=== PATIENT | male | born 1960 | race Caucasian/White ===

== ENCOUNTER 2018-01-09 09:51 | Inpatient (IN) ==
--- NOTE | 2018-01-08 21:45 | Discharge Summary ---
<[place] E - Last Filed: 01/08/18 21:42> Date of Encounter: 01/08/18 - Discharge Diagnosis (1) Status post right knee replacement Priority: Primary Status: Acute (2) Arthritis of right knee Priority: Primary Status: Chronic (3) Diabetes mellitus Priority: Secondary Status: Chronic Qualifiers: Diabetes mellitus type: other specified (including BHARATH) Diabetes mellitus detention insulin use: with detention use Diabetes mellitus complication status: with unspecified complications Qualified Code(s): E13.8 - Other specified diabetes mellitus with unspecified complications; Z79.4 - halfway ( current) use of insulin; Z79.4 - halfway (current) use of insulin; Z79.4 - halfway (current) use of insulin; Z79.4 - halfway (current) use of insulin (4) Obesity Priority: Secondary Status: Chronic Qualifiers: Obesity type: unspecified obesity type Obesity classification: unspecified obesity classification Serious obesity comorbidity presence: unspecified whether serious comorbidity present Qualified Code(s): E66.9 - Obesity, unspecified (5) HTN (hypertension) Priority: Secondary Status: Chronic Qualifiers: Hypertension type: unspecified Qualified Code(s): I10 - Essential (primary ) hypertension - Hospital Course Hospital course: Mr. Sawyer is a 57 year old male - Time Spent with Patient Total time spent providing and/or coordinating discharge services: - Discharge Medications Home Medications: Aspirin Enteric Coated [Aspirin EC] 325 mg PO BID 10 Days #20 tablet [Rx] OxyCODONE Immed Rel [Roxicodone 5 MG] 5 mg PO Q6HR PRN 7 Days #28 tablet [Rx] Atorvastatin Calcium [Lipitor] 20 mg PO HS 01/09/18 [History] Insulin Glargine,Hum.rec.anlog [Lantus Solostar] 30 unit SQ HS 01/09/18 [History ] Lisinopril-HCTZ 20-12.5 [Prinzide 20-12.5] 1 tab PO HS 01/09/18 [History] Allergies/Adverse Reactions: 3 Allergy/AdvReac Type Severity Reaction Status Date / Time Sulfa (Sulfonamide Allergy See Verified 01/09/18 10:17 Antibiotics) Comments Primary care physician: PCP NONE - Patient Status Disposition: Home, Self-Care Condition: Good - Discharge Instructions Follow Up With: NONE,PCP [Primary Care Provider] - <Harley Yu - Last Filed: 01/10/18 06:44> Orders not resulted at time of discharge: Pending orders 01/09/18 01:00 XR knee RT limited 1-2V [XR] Routine Hemoglobin and Hematocrit [HEME] Routine Date of Encounter: 01/10/18 Time of Encounter: 06:44 - Discharge Diagnosis (1) Obesity (BMI 35.0-39.9 without comorbidity) Priority: Secondary Status: Chronic (2) Status post right knee replacement Priority: Primary Status: Acute (3) Arthritis of right knee Priority: Primary Status: Chronic (4) Diabetes mellitus Priority: Secondary Status: Chronic Qualifiers: Diabetes mellitus type: other specified (including BHARATH) Diabetes mellitus detention insulin use: with detention use Diabetes mellitus complication status: with unspecified complications Qualified Code(s): E13.8 - Other specified diabetes mellitus with unspecified complications; Z79.4 - halfway ( current) use of insulin; Z79.4 - halfway (current) use of insulin; Z79.4 - halfway (current) use of insulin; Z79.4 - terminal operations manager (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 Sawyer is a 57 year old male Status post total knee replacementThe patient had an uneventful postoperative course. They received antibiotics and physical therapy and were discharged in stable condition. There will follow-up in the office in 2 weeks. - Time Spent with Patient Total time spent providing and/or coordinating discharge services: Primary care physician: PCP NONE - Patient Status Overall status at discharge: patient is progressing back to baseline
[2018-01-09] MEDS ORDERED: Albuterol 2.5 MG/3 ML NEBULIZER IH ONE (10:02)
[2018-01-09] MEDS ORDERED: CeFAZolin Syr 3,000MG/30 ML 3,000 MG/30 ML SYRINGE IVPB ONE (10:02)
--- NOTE | 2018-01-09 10:13 | Anesthesia Evaluation PreOp ---
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 [Rx] OxyCODONE Immed Rel [Roxicodone 5 MG] 5 mg PO Q6HR PRN 7 Days #28 tablet [Rx] Atorvastatin Calcium [Lipitor] 20 mg PO HS 01/09/18 [History] Insulin Glargine,Hum.rec.anlog [Lantus Solostar] 30 unit SQ HS 01/09/18 [History ] Lisinopril-HCTZ 20-12.5 [Prinzide 20-12.5] 1 tab PO HS 01/09/18 [History] 3 Allergy/AdvReac Type Severity Reaction Status Date / Time Sulfa (Sulfonamide Allergy See Verified 01/09/18 10:17 Antibiotics) Comments - Meds/Allergy Pre-op Review Medications Reviewed: Yes Allergies Reviewed: Yes Beta Blockers on Current Med List: No Anesthesia Results - Labs 12/09/2017 3 WBC 9 HGB 14.9 HCT 44 PLT 237 Na 142 K 4.9 BUN 18 Cr 0.8 - Imaging EKG: report reviewed (09/22/2015 SINUS TACHYCARDIA NONSPECIFIC T-WAVE ABNORMALITY ABNORMAL RHYTHM ECG) Anesthesia Exam O2 Sat Height 1.88 m Height 1.88 m Height 1.88 m Weight 129.727 kg Weight 129.727 kg Weight 129.727 kg O2 Sat by Pulse Oximetry 95 Vital Signs Temp Pulse Resp BP Pulse Ox 98.2 F 90 18 143/82 95 01/09/18 10:14 01/09/18 10:14 01/09/18 10:14 01/09/18 10:14 01/09/18 10:14 Blood glucose: 331 Height: 6'2''/1.88 m Weight: 286 lbs/129.7 kg NPO (# of Hours): 8 Pain Scale: 0 Pain Scale Used: Numeric (1 - 10) - HEENT Pupil (Motor): EOMI Mallampati: III Teeth: Poor dentition Oral Opening: Greater than 3 - CLOTH MERCERIZING SUPERVISOR LOC: Oriented CLOTH MERCERIZING SUPERVISOR Motor: Normal RUE, Normal LUE, Normal RLE, Normal LLE, Normal Face CLOTH MERCERIZING SUPERVISOR Sensory: Normal: RUE, LUE, RLE, LLE, Face - Cardiac Rhythm: Regular Murmur: None - Pulmonary Breath Sounds: bilateral Clear Respiratory Effort: Symmetrical Anesthesia Assess/Plan ASA Score: 3 Modified Kristi Scale for Level of Consciousness: Cooperative, oriented, and tranquil Anesthetic Plan: General, Regional Monitoring Plan: Standard Monitors Recovery Plan: PACU
[2018-01-09] MEDS ORDERED: Ringers Solution, Lactated 1,000 ML IVC SCH (10:15)
[2018-01-09] MEDS ORDERED: *HR* Promethazine 25 MG/ML VIAL IVP PRN (10:19)
[2018-01-09] MEDS ORDERED: Dexamethasone 4 MG/ML VIAL IVP ONE (10:19)
[2018-01-09] MEDS ORDERED: Ondansetron 4 MG/2 ML VIAL IVP ONE (10:19)
[2018-01-09] MEDS ORDERED: *HR* Labetalol 20 MG/4 ML SYRINGE IVP PRN (10:19)
[2018-01-09] MEDS ORDERED: *HR* HYDROmorphone (PF) 1 MG/ML SYRINGE IVP PRN (10:19)
[2018-01-09] MEDS ORDERED: *HR* Propofol 200 MG/20 ML VIAL IVP ONE (10:22)
[2018-01-09] MEDS ORDERED: *HR* FentaNYL (PF) 100 MCG/2 ML VIAL ONE (10:22)
[2018-01-09] MEDS ORDERED: *HR* Midazolam HCl 2 MG/2 ML VIAL ONE (10:22)
[2018-01-09] MEDS ORDERED: Ondansetron 4 MG/2 ML VIAL ONE (10:26)
[2018-01-09] MEDS ORDERED: Dexamethasone 4 MG/ML VIAL ONE (10:26)
[2018-01-09] MEDS ORDERED: Ketorolac 30 MG/ML VIAL ONE (10:26)
[2018-01-09] MEDS ORDERED: Lidocaine -MPF 2% 2 ML VIAL ONE (10:26)
[2018-01-09] MEDS ORDERED: ROPIVACAINE HCL/PF 0.5% 30 ML VIAL ONE (10:51)
--- NOTE | 2018-01-09 10:51 | History & Physical Report ---
Date of Encounter: 01/09/18 Time of Encounter: 10:50 24 Hour HP Update - Instructions Instructions: If the History and Physical is less than 30 days old and was completed prior to A.M. admission and or procedure and has NOT been updated on calendar day of procedure please complete this update prior to performing procedure. - Update Patient reports changes in Medical Condition: No Changes in examination, assessment, or condition: No Changes in Medication: No Preop tests/diagnostics Reviewed: Yes Surgery Remains Indicated: Yes Consent for Planned Operative Procedure(s) Verified: Yes - Pre-Operative Checklist Preoperative Checklist Indicated: No Prophylactic Antibiotic Ordered: Yes Is VTE Prophylaxis Indicated?: Yes
[2018-01-09] MEDS ORDERED: Bupivacaine/Clonidine Syringe 1 EACH SYRINGE ONE (10:52)
[2018-01-09] MEDS ORDERED: Insulin Regular, Human 100 UNIT/ML SQ ONE (11:04)
[2018-01-09] MEDS ORDERED: Morphine Sulfate/PF 5mg/10mL Vial ONE (11:08)
[2018-01-09] MEDS ORDERED: Lidocaine -MPF 2% 5 ML VIAL ONE (11:11)
[2018-01-09] MEDS ORDERED: Ethanol\\Acetic Acid\\Na Ace\\Ben 1,000 ML IRRIG.SOLN IR ONE (11:30)
--- NOTE | 2018-01-09 11:55 | Anesthesia Procedures ---
Date of Encounter: 01/09/18 Time of Encounter: 11:52 Procedures: Anesthesia - Epidural/Spinal Patient ID/Chart reviewed: Yes Patient examined: Yes Supplemental Oxygen: None/Room Air Supplemental Oxygen Rate (L/min): 2 Sedation: Versed (mg): 3 Sedation: Fentanyl (mcg): 100 Site Prep: Aseptic Technique, Sterile prep and drape, 0.5% Chlorhexidine/Alcohol Patient position: upright Local Anesthetic: Lidocaine 1% Amount of Local Anesthetic used: 3 Touhy Needle Gauge: other Interspace Used: L3-L4 Blood: No Spinal Needle Gauge: 25 Spinal Dose: 0.5% bupivacaine 2ml with 250mcg duramorph Vitals + FHT's: Vital Signs/O2 Sat, Most Current Temp Pulse Resp BP Pulse Ox 98.2 F 90 18 143/82 95 01/09/18 10:14 01/09/18 10:14 01/09/18 10:14 01/09/18 10:14 01/09/18 10:14
--- NOTE | 2018-01-09 11:59 | Anesthesia Procedures ---
Date of Encounter: 01/09/18 Time of Encounter: 12:00 Procedures: Anesthesia - Nerve Block Procedure Date: 01/09/18 Time: 11:57 Allergies/Adv Reactions: sulfa Surgical Procedure: robotic right total knee Checklist: Correct Patient Identifier, Correct procedure, History checked Correct side: Right Blood Thinner: No Monitor Applied: EKG, BP, Pulse Oximetry Supplemental Oxygen via Nasal Cannula (L/min): 2 Sedation: Versed (mg): 3 (given during spinal procedure) Sedation: Fentanyl (mcg): 0 Indication: Post Op Analgesia (per dr. anders) Pre-op Neuro Deficits: No Block Type: Other (adductor canal) Sterile Technique: Yes Ultrasound used: Yes Anatomy identified: Yes Visual spread of Local: Yes Neuro Stimulation: No Blood on Needle Aspiration: No Smooth Injection of Local: Yes Pain with Injection of Local: No Prep: Chlorhexadine Needle: 21 x 100 mm Stimuplex Local: Ropivacaine Volume (cc): 30 Number of Attempts: 1 Complications: None/effective block Vitals: Vital Signs/O2 Sat/Glucose, Most Current Temp Pulse Resp BP Pulse Ox 01/09/18 11:09 75 16 135/89 95 01/09/18 10:14 98.2 F 90 18 143/82 95
[2018-01-09] MEDS ORDERED: Propofol 500 MG/50 ML INFUS..BTL ONE (12:01)
--- NOTE | 2018-01-09 13:02 | Orthopedic Operative Note ---
Date of procedure: 01/09/18 Pre-op diagnosis: Right knee arthritis Post-op diagnosis: same Procedure: Procedure: Right robotic-assisted Total knee replacement Estimated blood loss: 200 cc Hardware: Metal and polyethylene replacement. [place] Femur:7 Tibia: 7 TS insert: 11 Patella: 39 Exam Under anesthesia: 5 degrees flexion contracture and 6 degrees varus as calculated by the robot full flexion and no instability Procedural Notes: 84 arthritic changes all 3 compartments. Operative procedure: The patient was brought to the operating room and placed on the operating room table. After general anesthesia was administered the operative knee was examined. Findings were noted in the exam under anesthesia. The operative extremity was prepped and draped in sterile surgical fashion. The patient received IV antibiotics prior to skin incision. A standard midline incision was made centered over the patella. The incision was made through the skin and subcutaneous tissue. A medial parapatellar tendon approach was performed. Care was taken to preserve tissue along the medial aspect of the patella. And to protect the patella tendon. The deep MCL was released off the medial tibia. The infra patella fat pad was excised. The patella was everted and cut was made at the level of the insertion of the quadriceps and patella tendon. The patella was sized to a 39 the guide was seated and the lug holes are drilled. Knee was brought into flexion. Patient noted to have it for arthritic changes all 3 compartments. Steinmann pins were placed in the tibia and the femur for the tibial and femoral arrays respectively. Checkpoints were also placed in the tibia and the femur for calculation purposes. The knee including the femur and the tibial registered. Osteophytes, ACL and PCL were excised at this point. Extension and flexion were assessed with a valgus stress components were adjusted on the computer to balance the knee. Femoral cuts were made first with robotic assistance, these included the anterior cut posterior cuts chamfer cuts. Tibial cut was then performed with robotic assistance as well. Bone fragments were removed, as well as the medial and lateral meniscus. The size 7 femoral guide was seated box cut was made lug holes are drilled. The size 7 tibial tray was seated and prepared with the fin cutter. Trial reduction with the 11 TS Rosalva revealed extension of 0 degree and 4 degrees varus full flexion. No varus valgus instability. Trial reduction revealed excellent patella tracking. All trial components were removed all bony surfaces were irrigated. The Tibia was seated followed by the femur, The Rosalva size 11 was seated and secured patella. Patient had similar findings for motion and stability. The knee was closed by the PA. The knee was then irrigated out with 2 L of pulse irrigation. The extensor mechanism was closed with #2 FiberWire suture and #2 PDS suture. The subcutaneous tissue was then irrigated and closed deep with #1 PDS suture superficially with 0 PDS suture and skin was closed with zip tie The patient was then placed in a sterile dressing and a postoperative brace extubated and transferred to recovery room in stable condition. Anesthesia: GETA Surgeon: Harley Yu Was there an health information assistant present: No Estimated blood loss (cc): 200 Condition: stable Disposition: PACU
--- NOTE | 2018-01-09 13:56 | Anesthesia Evaluation Post Op ---
Date of Encounter: 01/09/18 Time of Encounter: 13:54 - Vital Signs Vital Signs: vss - Lungs Lungs: Clear Ascult./Percussion - Airway Airway: Non-obstructed - Cardiovascular Baseline Rhythm (multiple PVC's noted, will have cardo to eval. pt reports METs >4 without s/s.) - Mental Status Mental Status: Alert & Oriented, Answers Appropriately - Pain Pain Scale used: Cole-Hayward (Faces) - Nausea Vomiting Nausea Vomiting: Not Present - Hydration Hydration: Ice chips - Discharge PostOp Status: Transfer Patient to floor
[2018-01-09 14:13] LABS: Hematocrit 39.8 % (37.5-50.1)
[2018-01-09] MEDS ORDERED: Ondansetron 4 MG/2 ML VIAL IVP PRN (14:29)
[2018-01-09] MEDS ORDERED: Sennosides 8.6 MG TABLET PO PRN (14:29)
[2018-01-09] MEDS ORDERED: *HR* Dextrose 50 % in Water (Syg) 50 ML SYRINGE IVP PRN (14:29)
[2018-01-09] MEDS ORDERED: *HR* Morphine 2 MG/ML SYRINGE IVP PRN (14:29)
[2018-01-09] MEDS ORDERED: D5% in Water 1,000 ML IVC PRN (14:29)
[2018-01-09] MEDS ORDERED: MOM Conc 10 ML UD.LIQ PO PRN (14:29)
[2018-01-09] MEDS ORDERED: Temazepam 15 MG CAPSULE PO PRN (14:29)
[2018-01-09] MEDS ORDERED: Dextrose Gel 15 GM/37.5 ML TUBE PO PRN ×2 (14:29)
[2018-01-09] MEDS ORDERED: Naloxone 0.4 MG/ML INJ IVP PRN (14:29)
[2018-01-09] MEDS: Insulin LISPRO 300 UNITS/3 ML VIAL SQ SCH ×3 (15:58→21:14)
[2018-01-09] MEDS: Ringers Solution, Lactated 1,000 ML IVC SCH (16:04)
[2018-01-09] MEDS: *HR* Enoxaparin 30 MG/0.3 ML SYRINGE SQ SCH (17:04)
[2018-01-09] MEDS ORDERED: *HR* Enoxaparin 30 MG/0.3 ML SYRINGE SQ SCH (18:00)
[2018-01-09] MEDS ORDERED: Insulin DETEMIR 100 UNIT/ML X5UNITS SQ SCH (21:00)
[2018-01-09] MEDS: Lisinopril-HCTZ 20-12.5mg TABLET PO SCH (21:15)
[2018-01-09] MEDS: CeFAZolin Syr 3,000MG/30 ML 3,000 MG/30 ML SYRINGE IVPB SCH (21:16)
[2018-01-09] MEDS: Insulin DETEMIR 100 UNIT/ML X5UNITS SQ SCH (22:11)
[2018-01-10] MEDS: traMADol 50 MG TABLET PO PRN ×2 (00:30→10:23)
[2018-01-10] MEDS: CeFAZolin Syr 3,000MG/30 ML 3,000 MG/30 ML SYRINGE IVPB SCH (03:58)
[2018-01-10] MEDS: *HR* Enoxaparin 30 MG/0.3 ML SYRINGE SQ SCH ×2 (05:46→16:56)
[2018-01-10 06:21] LABS: Hemoglobin 11.9 g/dL (12.9-16.9)
[2018-01-10 06:39] LABS: BUN/Creatinine Ratio 25 (6-26); Blood Urea Nitrogen 26 mg/dL (6-20); Calcium 8.8 mg/dL (8.6-10.3); Carbon Dioxide 25 mEq/L (23-29); Chloride 103 mEq/L (98-107); Glucose 426 mg/dL (70-105); Osmolality,Calculated 301 (280-300); Potassium 4.3 mEq/L (3.5-5.1); Sodium 134 mEq/L (136-145); eGFR For African Americans > 60 (> 60); eGFR For Non-African Americans > 60 (> 60)
--- NOTE | 2018-01-10 06:45 | Orthopedics Progress Note ---
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: with longwall machine operator helper use Diabetes mellitus complication status: with unspecified complications Qualified Code(s): E13.8 - Other specified diabetes mellitus with unspecified complications; Z79.4 - snf ( current) use of insulin; Z79.4 - snf (current) use of insulin; Z79.4 - 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 Afebrile vital signs stable. Operative extremity: Neurovascularly intact Dressing clean dry and intact Calves nontender Assessment and plan: Continue with postoperative care Hematocrit 35 discharged today Objective Vital signs: Vital Signs Temp Pulse Resp BP Pulse Ox 01/10/18 03:40 97.8 F 75 16 125/81 95 01/10/18 02:39 97 01/09/18 23:19 98.8 F 99 17 115/74 92 01/09/18 18:59 98.1 F 107 16 124/73 92 01/09/18 14:33 98.0 F 73 16 106/68 93 01/09/18 14:10 98.6 F 81 14 104/71 93 01/09/18 14:00 98.6 F 79 14 112/61 93 01/09/18 13:50 78 18 110/66 93 01/09/18 13:40 79 14 101/78 95 01/09/18 13:30 98 F 89 16 119/66 96 01/09/18 11:52 106 16 99/47 94 01/09/18 11:49 105 16 121/68 94 01/09/18 11:46 106 16 99/65 95 01/09/18 11:43 77 16 109/72 96 01/09/18 11:40 94 16 115/71 95 01/09/18 11:37 78 16 113/74 96 01/09/18 11:34 86 16 108/70 97 01/09/18 11:31 103 16 120/70 96 01/09/18 11:28 98 16 121/86 94 01/09/18 11:23 87 16 137/94 95 01/09/18 11:09 75 16 135/89 95 01/09/18 10:14 98.2 F 90 18 143/82 95 Intake and Output 01/09/18 01/09/18 01/10/18 15:59 23:59 07:59 Intake Total 30 / 30 680 / 680 Output Total 200 / 200 125 / 125 1110 / 1110 Balance -170 / -170 555 / 555 -1110 / -1110 Intake: IV Fluids 30 / 30 30 / 30 Ancef Syringe 3,000 MG/30 ML 3, 30 / 30 30 / 30 000 mg In 30 ml @ 200 mls/hr IVPB Q8H TRUE Rx#:[id number] Oral 650 / 650 Output: Urine 125 / 125 1110 / 1110 Estimated Blood Loss 200 / 200 Other: # Voids 1 Weight 129.727 kg 162.9 kg Blood Glucose* 271 467 Patient Weight 01/10/18 23:59 Weight 162.9 kg - Labs CBC & BMP: 01/10/18 06:04 01/10/18 06:04 Labs: Abnormal lab results Hgb 11.9 g/dL (12.9-16.9) L 01/10/18 06:04 Hct 36.0 % (37.5-50.1) L 01/10/18 06:04 Sodium 134 mEq/L (136-145) L 01/10/18 06:04 BUN 26 mg/dL (6-20) H 01/10/18 06:04 Glucose 426 mg/dL (70-105) H 01/10/18 06:04 POC Glucose 331 mg/dL (68-89) H 01/09/18 10:11 Calculated Osmolality 301 (280-300) H 01/10/18 06:04 - VTE Documentation of Mechanical Device: Venous foot pump, device Consult Discharge Plan - Plan Referrals: NONE,PCP [Primary Care Provider] -
[2018-01-10] MEDS: Insulin LISPRO 300 UNITS/3 ML VIAL SQ SCH ×4 (08:35→21:27)
--- NOTE | 2018-01-10 08:58 | Cardiology Consult Note ---
Date of Encounter: 01/10/18 Time of Encounter: 08:56 Assessment and Plan (1) Ventricular ectopy Current Visit: Yes Status: Acute Multiple PVCs with trigeminy on telemetry. Echocardiogram will be obtained to rule out structural heart abnormalities. Stress test also should be obtained inpatient if abnormalities on the echo are evident versus outpatient if unremarkable echocardiogram. A low dose beta hugo upon discharge is reasonable if echocardiogram is unremarkable Discussion w patient/family: The assessment and plan as outlined above was discussed with the patient and/or family members who expressed understanding and agreement. All questions were answered. Thank you for involving us in the care of your patient. Please call with any questions. History of Present Illness Consult date: 01/10/18 Consult reason: PVCs Chief complaint: Abnormal EKG History of present illness: Mr. Sawyer is a 57 year old male with history of multiple cardiac risk factors including hypertension, diabetes, obstructive sleep apnea, family history of coronary artery disease status post right knee surgery found to have trigeminy on telemetry. Patient denies any palpitations and is unaware of his ectopy. He has not had any cardiac testing in the past with no echoes or stress tests. He also is noncompliant with his CPAP machine. He denies any previous chest pain, shortness of breath, dyspnea on exertion, orthopnea, PND, presyncope or syncope. During his hospital stay I do believe an echocardiogram is reasonable to rule out structural heart abnormalities. If found we may consider further testing with an inpatient stress test. If his echocardiogram is unremarkable patient can have chemical stress test as an outpatient for further risk stratification due to his multiple cardiac risk factors and PVCs. Past Med Surg Social Fam HX - Past Medical History Medical history: diabetes, hyperlipidemia, hypertension Psychiatric history: no psych history - Past Surgical History Surgical History: other - Social History Smoking Status: Never smoker Smokeless Tobacco Status: No Alcohol use: none Drug use: none - Family History Mother Age: 82 Hx Family Cardiac Disorders: Yes (htn) Hx Family Respiratory Disorders: Yes (asthma) Hx Family Cancer: No Hx Family GI Disorders: No Hx Family Genitourinary Disorders: No Hx Family Endocrine Disorder: Yes (DM) Hx Family Musculoskeletal Disorders: Yes (Fibromyalgia) Hx Family Neuromuscular Disorders: No Hx Family Neurologic Disorders: No Hx Family HEENT Disorders: No Hx Family Autoimmune Disorders: No Hx Family Reproductive Disorders: No Hx Family Psychosocial Disorders: No Hx Family Medical Disorders: No Father Living Status: Age at : 72 Cause of : bursted appendix Hx Family Cardiac Disorders: Yes (CO) Hx Family Respiratory Disorders: No Hx Family Cancer: No Hx Family GI Disorders: No Hx Family Genitourinary Disorders: No Hx Family Endocrine Disorder: No Hx Family Musculoskeletal Disorders: No Hx Family Neuromuscular Disorders: No Hx Family Neurologic Disorders: No Hx Family HEENT Disorders: No Hx Family Autoimmune Disorders: No Hx Family Reproductive Disorders: No Hx Family Psychosocial Disorders: No Hx Family Medical Disorders: No Medications and Allergies Aspirin Enteric Coated [Aspirin EC] 325 mg PO BID 10 Days #20 tablet. [Rx] OxyCODONE Immed Rel [Roxicodone 5 MG] 5 mg PO Q6HR PRN 7 Days #28 tablet [Rx] Atorvastatin Calcium [Lipitor] 20 mg PO HS 01/09/18 [History] Insulin Glargine,Hum.rec.anlog [Lantus Solostar] 30 unit SQ HS 01/09/18 [History ] Lisinopril-HCTZ 20-12.5 [Prinzide 20-12.5] 1 tab PO HS 01/09/18 [History] 3 Allergy/AdvReac Type Severity Reaction Status Date / Time Sulfa (Sulfonamide Allergy See Verified 01/09/18 10:17 Antibiotics) Comments All Systems Review: The remainder of the systems were reviewed and are negative Physical Examination Vital Signs, Last 4 Hours Temp Pulse Resp BP Pulse Ox 01/10/18 08:11 97.8 F 76 16 131/81 95 General: Conversant, No Apparent Distress HEENT: Atraumatic, Normocephaly, Mucus Membranes Moist Neck: No JVD, Normal carotid pulses Cardiac: Reg Rate and Rhythm, Normal S1 and S2, No Murmur Lungs: Normal Breath Sounds, No Wheeze, Rales, Rhonchi Neuro: Alert and responsive, No focal deficits noted Abdomen: Soft, Non-Tender Skin: No rashes noted on visualized skin Musculoskeletal: No Chest Wall Tenderness Extremities: No Clubbing, No Cyanosis, No Edema, Normal Pulses Results 01/10/18 06:04 01/10/18 06:04 Lab Results 01/09/18 01/10/18 01/10/18 13:48 06:04 06:04 Hgb 13.0 11.9 L Hct 39.8 36.0 L Sodium 134 L Potassium 4.3 Chloride 103 Carbon Dioxide 25 BUN 26 H Creatinine 1.03 Glucose 426 H Calcium 8.8 Consult Discharge Plan - Plan Additional Instructions: Discharge Instructions: Total Knee Replacement Please call [facility] ([phone]), your Primary Care Physician, or report to the Emergency Room if you have any of the following symptoms: Nausea, vomiting, fever greater that 101.5, swelling, chest pain, shortness of breath, increased pain/redness/drainage/odor for your incision site, numbness/ tingling, or any other concerning symptoms. ACTIVITY:Weight-bearing as tolerated. You may progress off support (crutches or walker) as tolerated. MEDICATIONS: Upon discharge resume your home medications. Take all the medications as prescribed. Take a stool softener if taking narcotic pain medications. Stool softeners are only effective if you drink enough fluids. Drink 6-8 glass of water or fluids a day, unless this is not allowed for another health problem. Despite using stool softeners, if you haven't had a bowel movement in 3 days, please switch to a gentle laxative. Gentle laxatives are sold over the counter. You should have a bowel movement within 24 hours, if not call the office. You will be discharged from the hospital with a prescription for pain medication. You are encouraged to decrease the use of narcotic pain medication as tolerated. Should you require a refill, please call the office. [facility] prescribes narcotic pain medication for only 4-6 weeks after surgery. If you require pain medication beyond this time period, you may be referred to your Primary Care Physician or to the Pain Clinic for further evaluation. Plan ahead for refills on pain medication as many narcotics either need to be picked up at the office or mailed. It is best to call 48-72 hours in advance of needing a prescription refill so you don't run out of medication. To help control the post-operative pain, you may take NSAIDs (Aleve,Advil, Motrin, Ibuprofen, Naprosyn) or Tylenol as prescribed on the bottle in addition to the pain medication. ANTICOAGULATION (blood thinners): Continue your Aspirin, Lovenox or Coumadin as prescribed to help prevent a blood clot in the leg or in the lungs. As long as your incision remains dry and you tolerate the NSAIDs (Aleve, Advil, Motrin, ibuprofen, naprosyn), it is OK to use the NSAIDS while you are taking your anticoagulation medication. Should your incision start to drain, stop the NSAID and contact our office. Common symptoms of blood clot in the legs include: localized pain, swelling, calf tenderness, redness or discoloration of the skin. Blood clot in the lung symptoms include: shortness of breath, rapid pulse, sweating, and chest pain that worsens with deep breathing, coughing up blood, lightheadedness, feelings of anxiety. If you experience any of these symptoms notify your physician immediately, go to the emergency room, or if having trouble breathing, call 911. WOUND CARE: Leave the dressing on for 7 to 10days. You may change the dressing if it becomes saturated greater than 50%. Do not get the dressing wet at anytime. Wash your hands with antibacterial soap, rinse and dry prior to any wound care. If you have nabor the visiting nurse or rehab facility can remove the stapes 10-14 days after surgery and [address] steri-strips across the wound. Leave the steri-strips in place until they fall off on their won. You may let water from the shower run on top of the steri-strips. If you do not have a visiting nurse or rehab facility, you will need to return to the office at 10-14 days for the nabor to be removed. If you have itching or redness around the dressing call the office. FOLLOW-UP: Please follow up with your surgeon in the orthopedic clinic in 4 weeks from the day of surgery. If you have nabor that need to be removed, you will need to come back to the office in 10-14 days from the day of surgery. Referrals: Harley Yu MD [Partnered Physician] - 01/19/18 9:30 am NONE,PCP [Primary Care Provider] -
--- NOTE | 2018-01-10 14:35 | Event Note ---
Date of Encounter: 01/10/18 Time of Encounter: 12:05 PCR- POD#1 R TKR robotic 01/09/18 Gigi PCR - Patient seen at bedside. Kehindeancee at bedside as well. Labwork and medications reviewed. Pain control: Adequate Participating in PT. All questions and concerns addressed. Educated on use of incentive spirometer, ambulation, and hydration. Patient educated on post-operative restrictions and care. Addressed: Hyperglycemia - increased patient's sliding scale. Cardio consult - appreciate input - awaiting echo - if benign, patient to go home on beta hugo, if positive plan to evaluate with stress test. D/C plan: Home possibly today pending echo results
[2018-01-10] MEDS: *HR* OxyCODONE/APAP 5/325 TABLET PO PRN (14:54)
[2018-01-10] MEDS: Ringers Solution, Lactated 1,000 ML IVC SCH (15:07)
[2018-01-10] MEDS: *HR* OxyCODONE Immed Rel 5 MG TABLET PO PRN (18:07)
[2018-01-10] MEDS: Lisinopril-HCTZ 20-12.5mg TABLET PO SCH (21:22)
[2018-01-10] MEDS: Insulin DETEMIR 100 UNIT/ML X5UNITS SQ SCH (21:24)
[2018-01-11] MEDS: *HR* OxyCODONE Immed Rel 5 MG TABLET PO PRN ×5 (01:48→20:42)
[2018-01-11] MEDS: *HR* Enoxaparin 30 MG/0.3 ML SYRINGE SQ SCH ×2 (04:55→17:34)
[2018-01-11 05:20] LABS: Hematocrit 37.6 % (37.5-50.1); Hemoglobin 12.5 g/dL (12.9-16.9)
[2018-01-11 05:41] LABS: BUN/Creatinine Ratio 26 (6-26); Blood Urea Nitrogen 20 mg/dL (6-20); Calcium 9.3 mg/dL (8.6-10.3); Carbon Dioxide 29 mEq/L (23-29); Chloride 102 mEq/L (98-107); Glucose 166 mg/dL (70-105); Osmolality,Calculated 290 (280-300); Potassium 3.6 mEq/L (3.5-5.1); Sodium 137 mEq/L (136-145); eGFR For African Americans > 60 (> 60); eGFR For Non-African Americans > 60 (> 60)
[2018-01-11] MEDS: Insulin LISPRO 300 UNITS/3 ML VIAL SQ SCH ×4 (08:14→20:43)
--- NOTE | 2018-01-11 08:35 | Orthopedics Progress Note ---
Date of Encounter: 01/11/18 Time of Encounter: 08:35 - Assessment and Plan (1) Obesity (BMI 35.0-39.9 without comorbidity) Current Visit: Yes Status: Chronic (2) Status post right knee replacement Current Visit: No Status: Acute (3) Arthritis of right knee Current Visit: No Status: Chronic (4) Diabetes mellitus Current Visit: No Status: Chronic Qualifiers: Diabetes mellitus type: other specified (including BHARATH) Diabetes mellitus incoming inspector insulin use: with incoming inspector use Diabetes mellitus complication status: with unspecified complications Qualified Code(s): E13.8 - Other specified diabetes mellitus with unspecified complications; Z79.4 - care home ( current) use of insulin; Z79.4 - care home (current) use of insulin; Z79.4 - fuel cell engineer (current) use of insulin; Z79.4 - fuel cell engineer (current) use of insulin (5) HTN (hypertension) Current Visit: No Status: Chronic Qualifiers: Hypertension type: unspecified Qualified Code(s): I10 - Essential (primary ) hypertension Subjective Interval history: Patient was seen this morning doing well without complaints. Afebrile vital signs stable. Operative extremity: Neurovascularly intact Dressing clean dry and intact Calves nontender significant swelling will obtain Doppler. Assessment and plan: Continue with postoperative care Patient being evaluated by cardiology awaiting echo Objective Vital signs: Vital Signs Temp Pulse Resp BP Pulse Ox 01/11/18 07:42 98.4 F 68 22 142/85 97 01/11/18 04:43 98.0 F 62 16 147/87 97 01/10/18 23:32 98.2 F 87 16 139/82 92 01/10/18 19:50 97.6 F 97 18 133/81 96 01/10/18 16:33 98.7 F 87 16 132/65 96 01/10/18 11:56 98.2 F 82 16 128/78 95 01/10/18 09:10 95 Intake and Output 01/10/18 01/11/18 01/11/18 23:59 07:59 15:59 Intake Total 500 / 500 150 / 150 Output Total 600 / 600 750 / 750 Balance -100 / -100 -600 / -600 Intake: Oral 500 / 500 150 / 150 Output: Urine 600 / 600 750 / 750 Other: Blood Glucose* 260 193 - Labs CBC & BMP: 01/11/18 04:45 04/04/18 04:45 Labs: Abnormal lab results Hgb 12.5 g/dL (12.9-16.9) L 01/11/18 04:45 Glucose 166 mg/dL (70-105) H 01/11/18 04:45 POC Glucose 260 mg/dL (68-89) H 01/10/18 21:27 - VTE Documentation of Mechanical Device: Venous foot pump, device Consult Discharge Plan - Plan Additional Instructions: Discharge Instructions: Total Knee Replacement Please call [facility] ([phone]), your Primary Care Physician, or report to the Emergency Room if you have any of the following symptoms: Nausea, vomiting, fever greater that 101.5, swelling, chest pain, shortness of breath, increased pain/redness/drainage/odor for your incision site, numbness/ tingling, or any other concerning symptoms. ACTIVITY:Weight-bearing as tolerated. You may progress off support (crutches or walker) as tolerated. MEDICATIONS: Upon discharge resume your home medications. Take all the medications as prescribed. Take a stool softener if taking narcotic pain medications. Stool softeners are only effective if you drink enough fluids. Drink 6-8 glass of water or fluids a day, unless this is not allowed for another health problem. Despite using stool softeners, if you haven't had a bowel movement in 3 days, please switch to a gentle laxative. Gentle laxatives are sold over the counter. You should have a bowel movement within 24 hours, if not call the office. You will be discharged from the hospital with a prescription for pain medication. You are encouraged to decrease the use of narcotic pain medication as tolerated. Should you require a refill, please call the office. [facility] prescribes narcotic pain medication for only 4-6 weeks after surgery. If you require pain medication beyond this time period, you may be referred to your Primary Care Physician or to the Pain Clinic for further evaluation. Plan ahead for refills on pain medication as many narcotics either need to be picked up at the office or mailed. It is best to call 48-72 hours in advance of needing a prescription refill so you don't run out of medication. To help control the post-operative pain, you may take NSAIDs (Aleve,Advil, Motrin, Ibuprofen, Naprosyn) or Tylenol as prescribed on the bottle in addition to the pain medication. ANTICOAGULATION (blood thinners): Continue your Aspirin, Lovenox or Coumadin as prescribed to help prevent a blood clot in the leg or in the lungs. As long as your incision remains dry and you tolerate the NSAIDs (Aleve, Advil, Motrin, ibuprofen, naprosyn), it is OK to use the NSAIDS while you are taking your anticoagulation medication. Should your incision start to drain, stop the NSAID and contact our office. Common symptoms of blood clot in the legs include: localized pain, swelling, calf tenderness, redness or discoloration of the skin. Blood clot in the lung symptoms include: shortness of breath, rapid pulse, sweating, and chest pain that worsens with deep breathing, coughing up blood, lightheadedness, feelings of anxiety. If you experience any of these symptoms notify your physician immediately, go to the emergency room, or if having trouble breathing, call 911. WOUND CARE: Leave the dressing on for 7 to 10days. You may change the dressing if it becomes saturated greater than 50%. Do not get the dressing wet at anytime. Wash your hands with antibacterial soap, rinse and dry prior to any wound care. If you have nabor the visiting nurse or rehab facility can remove the stapes 10-14 days after surgery and [address] steri-strips across the wound. Leave the steri-strips in place until they fall off on their won. You may let water from the shower run on top of the steri-strips. If you do not have a visiting nurse or rehab facility, you will need to return to the office at 10-14 days for the nabor to be removed. If you have itching or redness around the dressing call the office. FOLLOW-UP: Please follow up with your surgeon in the orthopedic clinic in 4 weeks from the day of surgery. If you have nabor that need to be removed, you will need to come back to the office in 10-14 days from the day of surgery. Referrals: Harley Yu MD [Partnered Physician] - 01/19/18 9:30 am NONE,PCP [Primary Care Provider] -
--- NOTE | 2018-01-11 11:25 | Cardiology Progress Note ---
Date of Encounter: 01/11/18 Time of Encounter: 11:00 Assessment and Plan (1) Ventricular ectopy Current Visit: Yes Status: Acute Multiple PVCs with trigeminy on telemetry s/p total knee replacement. Unclear chronicity. TTE resulted, EF preserved, no wall motion abnormality noted. Study was d/c'ed prematurely due to leg pain per pt, unable to continue to lay flat. Reviewed with Dr. Oreilly, will start low dose betablocker and coordinate for outpatient stress. No further testing as inpatient. Will sign-off. Impressions Echocardiogram 01/10/18 12:58 Impressions: LVEF 55%. Mild left ventricular diastolic dysfunction. RV size is not optimally visualized. Function appears normal. No significant valvular dysfunction. No pulmonary hypertension - lack of TR gradient. IVC not visualized. Patient requested exam to stop prematurely. Left Ventricular Wall Motion: Rest Echo Findings The apex, apical inferior, mid inferior, basal inferior, apical anterior, mid anterior and basal anterior manzo were not visualized. All other wall segments showed normal motion. Discussion w patient/family: The assessment and plan as outlined above was discussed with the patient and/or family members who expressed understanding and agreement. All questions were answered. Thank you for involving us in the care of your patient. Please call with any questions. The patient was discussed and reviewed with Dr. Oreilly who agrees with plan as stated above. Subjective Principal diagnosis: PVCs s/p total knee Interval history: Seen and examined. No complaints overnight other than surgical site pain. Objective Vital Signs, Last 4 Hours Temp Pulse Resp BP Pulse Ox 01/11/18 07:42 98.4 F 68 22 142/85 97 General: Conversant, No Apparent Distress HEENT: Atraumatic, Normocephaly, Mucus Membranes Moist Cardiac: Reg Rate and Rhythm, Normal S1 and S2 Lungs: Normal Breath Sounds Neuro: Alert and responsive Abdomen: Soft Musculoskeletal: No Chest Wall Tenderness Extremities: No Edema, Normal Pulses Results 01/11/18 04:45 01/11/18 04:45 Lab Results 01/11/18 01/11/18 04:45 04:45 Hgb 12.5 L Hct 37.6 Sodium 137 Potassium 3.6 Chloride 102 Carbon Dioxide 29 BUN 20 Creatinine 0.76 Glucose 166 H Calcium 9.3 - Imaging and Cardiology Echo: report reviewed Other Results: 12 hour tele: avg HR=95 SR with frequent PVCs - EKG Interpretation EKG results cardiology: personally reviewed - VTE Documentation of Mechanical Device: Venous foot pump, device Consult Discharge Plan - Plan Additional Instructions: Discharge Instructions: Total Knee Replacement Please call [facility] ([phone]), your Primary Care Physician, or report to the Emergency Room if you have any of the following symptoms: Nausea, vomiting, fever greater that 101.5, swelling, chest pain, shortness of breath, increased pain/redness/drainage/odor for your incision site, numbness/ tingling, or any other concerning symptoms. ACTIVITY:Weight-bearing as tolerated. You may progress off support (crutches or walker) as tolerated. MEDICATIONS: Upon discharge resume your home medications. Take all the medications as prescribed. Take a stool softener if taking narcotic pain medications. Stool softeners are only effective if you drink enough fluids. Drink 6-8 glass of water or fluids a day, unless this is not allowed for another health problem. Despite using stool softeners, if you haven't had a bowel movement in 3 days, please switch to a gentle laxative. Gentle laxatives are sold over the counter. You should have a bowel movement within 24 hours, if not call the office. You will be discharged from the hospital with a prescription for pain medication. You are encouraged to decrease the use of narcotic pain medication as tolerated. Should you require a refill, please call the office. [facility] prescribes narcotic pain medication for only 4-6 weeks after surgery. If you require pain medication beyond this time period, you may be referred to your Primary Care Physician or to the Pain Clinic for further evaluation. Plan ahead for refills on pain medication as many narcotics either need to be picked up at the office or mailed. It is best to call 48-72 hours in advance of needing a prescription refill so you don't run out of medication. To help control the post-operative pain, you may take NSAIDs (Aleve,Advil, Motrin, Ibuprofen, Naprosyn) or Tylenol as prescribed on the bottle in addition to the pain medication. ANTICOAGULATION (blood thinners): Continue your Aspirin, Lovenox or Coumadin as prescribed to help prevent a blood clot in the leg or in the lungs. As long as your incision remains dry and you tolerate the NSAIDs (Aleve, Advil, Motrin, ibuprofen, naprosyn), it is OK to use the NSAIDS while you are taking your anticoagulation medication. Should your incision start to drain, stop the NSAID and contact our office. Common symptoms of blood clot in the legs include: localized pain, swelling, calf tenderness, redness or discoloration of the skin. Blood clot in the lung symptoms include: shortness of breath, rapid pulse, sweating, and chest pain that worsens with deep breathing, coughing up blood, lightheadedness, feelings of anxiety. If you experience any of these symptoms notify your physician immediately, go to the emergency room, or if having trouble breathing, call 911. WOUND CARE: Leave the dressing on for 7 to 10days. You may change the dressing if it becomes saturated greater than 50%. Do not get the dressing wet at anytime. Wash your hands with antibacterial soap, rinse and dry prior to any wound care. If you have nabor the visiting nurse or rehab facility can remove the stapes 10-14 days after surgery and [address] steri-strips across the wound. Leave the steri-strips in place until they fall off on their won. You may let water from the shower run on top of the steri-strips. If you do not have a visiting nurse or rehab facility, you will need to return to the office at 10-14 days for the nabor to be removed. If you have itching or redness around the dressing call the office. FOLLOW-UP: Please follow up with your surgeon in the orthopedic clinic in 4 weeks from the day of surgery. If you have nabor that need to be removed, you will need to come back to the office in 10-14 days from the day of surgery. Referrals: Harley Yu MD [Partnered Physician] - 01/19/18 9:30 am NONE,PCP [Primary Care Provider] -
[2018-01-11] MEDS: Metoprolol XL (24 HR) Succ 25 MG TAB.ER.24H PO SCH (12:17)
[2018-01-11] MEDS ORDERED: Acetaminophen 325 MG TABLET PO PRN (12:28)
--- NOTE | 2018-01-11 17:10 | Event Note ---
Date of Encounter: 01/11/18 Time of Encounter: 11:40 PCR- POD#2 R TKR robotic 01/09/18 Gigi PCR - Patient seen at bedside. Labwork and medications reviewed. Pain control: Adequate Not participating in PT - educated patient importance of PT and he will be going home soon so must work with them as he states he has 2 steps at home. All questions and concerns addressed. Educated on use of incentive spirometer, ambulation, and hydration. Patient educated on post-operative restrictions and care. Addressed: Hyperglycemia - patient's sliding scale adjusted Cardio consult - appreciate input - patient to go home on beta hugo, plan to evaluate with stress test outpatient D/C plan: Home today Patient states he will not be leaving today as he states he does not feel safe yet to go home and will work with therapy this afternoon and go home tomorrow.
[2018-01-11] MEDS: Lisinopril-HCTZ 20-12.5mg TABLET PO SCH (20:42)
[2018-01-11] MEDS: Insulin DETEMIR 100 UNIT/ML X5UNITS SQ SCH (20:43)
[2018-01-12] MEDS: *HR* OxyCODONE Immed Rel 5 MG TABLET PO PRN (01:44)
[2018-01-12] MEDS: *HR* Enoxaparin 30 MG/0.3 ML SYRINGE SQ SCH (06:00)
[2018-01-12] MEDS: *HR* OxyCODONE/APAP 5/325 TABLET PO PRN ×2 (06:00→10:21)
[2018-01-12 07:45] VITALS: BP 126/76
--- NOTE | 2018-01-12 08:23 | Orthopedics Progress Note ---
Date of Encounter: 01/12/18 Time of Encounter: 08:22 - Assessment and Plan (1) Obesity (BMI 35.0-39.9 without comorbidity) Current Visit: Yes Status: Chronic (2) Status post right knee replacement Current Visit: No Status: Acute (3) Arthritis of right knee Current Visit: No Status: Chronic (4) Diabetes mellitus Current Visit: No Status: Chronic Qualifiers: Diabetes mellitus type: other specified (including BHARATH) Diabetes mellitus termite inspector insulin use: with termite inspector use Diabetes mellitus complication status: with unspecified complications Qualified Code(s): E13.8 - Other specified diabetes mellitus with unspecified complications; Z79.4 - care home ( current) use of insulin; Z79.4 - care home (current) use of insulin; Z79.4 - terminal block assembler (current) use of insulin; Z79.4 - terminal block assembler (current) use of insulin (5) HTN (hypertension) Current Visit: No Status: Chronic Qualifiers: Hypertension type: unspecified Qualified Code(s): I10 - Essential (primary ) hypertension Subjective Principal diagnosis: PVCs s/p total knee Interval history: Patient was seen this morning doing well without complaints. Afebrile vital signs stable. Operative extremity: Neurovascularly intact Dressing clean dry and intact Calves nontender significant swelling will obtain Doppler. Assessment and plan: Continue with postoperative care Patient cleared for discharge. Objective Vital signs: Vital Signs Temp Pulse Resp BP Pulse Ox 01/12/18 07:41 97.9 F 103 20 126/76 98 01/12/18 03:30 98.6 F 105 18 120/75 94 01/11/18 23:21 98.5 F 105 18 121/75 95 01/11/18 15:13 99.8 F H 53 18 136/79 93 01/11/18 12:17 72 01/11/18 11:52 98.9 F 53 20 160/75 93 Intake and Output 01/11/18 01/12/18 01/12/18 23:59 07:59 15:59 Intake Total 400 / 400 360 / 360 Balance 400 / 400 360 / 360 Intake: Oral 400 / 400 360 / 360 Other: Blood Glucose* 170 197 - Labs CBC & BMP: 01/11/18 04:45 01/11/18 04:45 Labs: Abnormal lab results Hgb 12.5 g/dL (12.9-16.9) L 01/11/18 04:45 Glucose 166 mg/dL (70-105) H 01/11/18 04:45 POC Glucose 197 mg/dL (70-99) H 01/12/18 07:44 - VTE Documentation of Mechanical Device: Venous foot pump, device Consult Discharge Plan - Plan Additional Instructions: Discharge Instructions: Total Knee Replacement Please call [facility] ([phone]), your Primary Care Physician, or report to the Emergency Room if you have any of the following symptoms: Nausea, vomiting, fever greater that 101.5, swelling, chest pain, shortness of breath, increased pain/redness/drainage/odor for your incision site, numbness/ tingling, or any other concerning symptoms. ACTIVITY:Weight-bearing as tolerated. You may progress off support (crutches or walker) as tolerated. MEDICATIONS: Upon discharge resume your home medications. Take all the medications as prescribed. Take a stool softener if taking narcotic pain medications. Stool softeners are only effective if you drink enough fluids. Drink 6-8 glass of water or fluids a day, unless this is not allowed for another health problem. Despite using stool softeners, if you haven't had a bowel movement in 3 days, please switch to a gentle laxative. Gentle laxatives are sold over the counter. You should have a bowel movement within 24 hours, if not call the office. You will be discharged from the hospital with a prescription for pain medication. You are encouraged to decrease the use of narcotic pain medication as tolerated. Should you require a refill, please call the office. [facility] prescribes narcotic pain medication for only 4-6 weeks after surgery. If you require pain medication beyond this time period, you may be referred to your Primary Care Physician or to the Pain Clinic for further evaluation. Plan ahead for refills on pain medication as many narcotics either need to be picked up at the office or mailed. It is best to call 48-72 hours in advance of needing a prescription refill so you don't run out of medication. To help control the post-operative pain, you may take NSAIDs (Aleve,Advil, Motrin, Ibuprofen, Naprosyn) or Tylenol as prescribed on the bottle in addition to the pain medication. ANTICOAGULATION (blood thinners): Continue your Aspirin, Lovenox or Coumadin as prescribed to help prevent a blood clot in the leg or in the lungs. As long as your incision remains dry and you tolerate the NSAIDs (Aleve, Advil, Motrin, ibuprofen, naprosyn), it is OK to use the NSAIDS while you are taking your anticoagulation medication. Should your incision start to drain, stop the NSAID and contact our office. Common symptoms of blood clot in the legs include: localized pain, swelling, calf tenderness, redness or discoloration of the skin. Blood clot in the lung symptoms include: shortness of breath, rapid pulse, sweating, and chest pain that worsens with deep breathing, coughing up blood, lightheadedness, feelings of anxiety. If you experience any of these symptoms notify your physician immediately, go to the emergency room, or if having trouble breathing, call 911. WOUND CARE: Leave the dressing on for 7 to 10days. You may change the dressing if it becomes saturated greater than 50%. Do not get the dressing wet at anytime. Wash your hands with antibacterial soap, rinse and dry prior to any wound care. If you have nabor the visiting nurse or rehab facility can remove the stapes 10-14 days after surgery and place steri-strips across the wound. Leave the steri-strips in place until they fall off on their won. You may let water from the shower run on top of the steri-strips. If you do not have a visiting nurse or rehab facility, you will need to return to the office at 10-14 days for the nabor to be removed. If you have itching or redness around the dressing call the office. FOLLOW-UP: Please follow up with your surgeon in the orthopedic clinic in 4 weeks from the day of surgery. If you have nabor that need to be removed, you will need to come back to the office in 10-14 days from the day of surgery. Referrals: Harley Yu MD [Partnered Physician] - 01/19/18 9:30 am NONE,PCP [Primary Care Provider] -
[2018-01-12] MEDS: Metoprolol XL (24 HR) Succ 25 MG TAB.ER.24H PO SCH (08:31)
[2018-01-12] MEDS: Insulin LISPRO 300 UNITS/3 ML VIAL SQ SCH ×2 (08:32→12:11)
== END 2018-01-12 12:55 | disposition home or self-care (01) | DRG 470 ==
LOC: SAMDAY 09:51 → 3NENU 14:34
PROVIDERS: ADMIT Orthopaedic Surgery; ATTEND Orthopaedic Surgery